=== PATIENT | female | born 1945 | race Caucasian/White ===

== ENCOUNTER → 2019-03-31 | Outpatient (CLI) | payer MEDICARE ==
[~2019-03-31] MED LIST: ALBU90OI INH; Atarax10 MG PO; CALC.25 PO; CLOBETTC TOP; Citalopram HBr40 MG PO; LEVSOD50 PO; Macrobid 100 M100 MG PO; Norco 5-325 Ta1 EACH PO; ONDA4ODT MM; ZYRTEC10 M2 PO
[2019-03-31 12:25] LABS: BASOPHILS ABSOLUTE AUTO 0.05 K/mm3 (0.00-0.23); BASOPHILS PERCENT AUTO 1 % (0-2); EOSINOPHILS ABSOLUTE AUTO 0.16 K/mm3 (0.00-0.68); EOSINOPHILS PERCENT AUTO 2 % (0-6); Hematocrit 33.6 % (33.0-51.0); IMMATURE GRAN ABSOLUTE AUTO 0.02 K/mm3 (0.00-0.10); IMMATURE GRAN PERCENT AUTO 0 % (0-1); LYMPHOCYTES ABSOLUTE AUTO 1.81 K/mm3 (0.84-5.20); LYMPHOCYTES PERCENT AUTO 26 % (21-46); MONOCYTES ABSOLUTE AUTO 0.61 K/mm3 (0.16-1.47); MONOCYTES PERCENT AUTO 9 % (4-13); Mean Corpuscular HGB 30.6 pg (26.0-34.0); Mean Corpuscular HGB Conc 32.7 g/dL (31.5-36.5); Mean Corpuscular Volume 93 fL (80-100); Mean Platelet Volume 10.4 fL (9.1-12.4); NEUTROPHILS ABSOLUTE AUTO 4.27 K/mm3 (1.96-9.15); NEUTROPHILS PERCENT AUTO 62 % (41-73); Platelet Count 221 K/mm3 (150-400); RDW Coefficient Variation 13.7 % (11.7-14.2); RDW Standard Deviation 46.4 fL (35.1-46.3); White Blood Cell Count 6.92 K/mm3 (4.00-11.30)
[2019-03-31 12:35] LABS: Albumin, Blood 3.6 g/dL (3.4-5.0); Albumin/Globulin Ratio 1.2 (0.8-1.8); Bilirubin, Total 0.2 mg/dL (0.1-1.0); Bun/Creatinine Ratio 15.9 (12.0-20.0); Calcium, Blood 8.3 mg/dL (8.5-10.1); Creatinine, Blood 2.71 mg/dL (0.40-1.00); Potassium, Blood 3.8 mmol/L (3.5-5.5); Total Protein, Blood 6.6 g/dL (6.4-8.2)
== END ==
LOC: LAB SHORT 12:22 → LAB EV 12:22
PROVIDERS: Emergency Medicine
DX: N18.9 Chronic kidney disease, unspecified (principal)
CPT/HCPCS: 80053; 85025

== ENCOUNTER 2019-04-23 07:13 | Emergency (ER) | payer MEDICARE ==
[~2019-04-23] VITALS: Ht 152.4 cm; Wt 72.6 kg
[2019-04-23] MEDS ORDERED: LEVSOD50 PO (07:57)
[2019-04-23] MEDS ORDERED: Atarax10 MG PO (07:57)
[2019-04-23] MEDS ORDERED: ZYRTEC10 M2 PO (07:57)
[2019-04-23] MEDS ORDERED: CALC.25 PO (07:57)
[2019-04-23] MEDS ORDERED: Citalopram HBr40 MG PO (07:57)
[2019-04-23] MEDS ORDERED: CLOBETTC TOP (07:57)
[2019-04-23 08:24] LABS: BASOPHILS ABSOLUTE AUTO 0.05 K/mm3 (0.00-0.23); BASOPHILS PERCENT AUTO 1 % (0-2); EOSINOPHILS ABSOLUTE AUTO 0.17 K/mm3 (0.00-0.68); EOSINOPHILS PERCENT AUTO 2 % (0-6); Hematocrit 34.6 % (33.0-51.0); Hemoglobin 10.9 g/dL (11.5-16.0); IMMATURE GRAN ABSOLUTE AUTO 0.03 K/mm3 (0.00-0.10); IMMATURE GRAN PERCENT AUTO 0 % (0-1); LYMPHOCYTES ABSOLUTE AUTO 1.89 K/mm3 (0.84-5.20); LYMPHOCYTES PERCENT AUTO 22 % (21-46); MONOCYTES ABSOLUTE AUTO 0.67 K/mm3 (0.16-1.47); MONOCYTES PERCENT AUTO 8 % (4-13); Mean Corpuscular HGB 29.6 pg (26.0-34.0); Mean Corpuscular HGB Conc 31.5 g/dL (31.5-36.5); Mean Corpuscular Volume 94 fL (80-100); Mean Platelet Volume 10.4 fL (9.1-12.4); NEUTROPHILS ABSOLUTE AUTO 5.62 K/mm3 (1.96-9.15); NEUTROPHILS PERCENT AUTO 67 % (41-73); Platelet Count 203 K/mm3 (150-400); RDW Standard Deviation 48.1 fL (35.1-46.3); Red Blood Cell Count 3.68 M/mm3 (3.80-5.20); White Blood Cell Count 8.43 K/mm3 (4.00-11.30)
[2019-04-23 08:30] LABS: Source, Urine Clean Catch
[2019-04-23 08:32] LABS: Bilirubin, Urine Neg (Neg); Blood, Urine 3+ (Neg); Glucose Qualitative, Urine Neg (Neg); Ketones, Urine Neg (Neg); Leukocyte Esterase, Urine 1+ (Neg); Nitrite, Urine Neg (Neg); Protein, Urine 2+ (Neg); Urobilinogen, Urine NORM (Normal); pH, Urine 6.5 (5.0-8.0)
[2019-04-23 08:34] LABS: Albumin, Blood 3.4 g/dL (3.4-5.0); Albumin/Globulin Ratio 1.1 (0.8-1.8); Bilirubin, Total 0.4 mg/dL (0.1-1.0); Bun/Creatinine Ratio 10.9 (12.0-20.0); Calcium, Blood 8.7 mg/dL (8.5-10.1); Creatinine, Blood 2.57 mg/dL (0.40-1.00); Globulin, Blood 3.2 g/dL (2.2-4.0); Potassium, Blood 3.9 mmol/L (3.5-5.5); Total Protein, Blood 6.6 g/dL (6.4-8.2)
[2019-04-23 08:45] LABS: Appearance, Urine Clear (Clear); Bacteria Rare /hpf; Color, Urine Pale Yellow (P-Yellow); Red Blood Cells, Urine 0-2 /hpf (0-2); Squamous Epithelial Cells Rare /hpf (Few); White Blood Cells, Urine 0-2 /hpf (0-5)
[2019-04-23] MEDS ORDERED: ONDA4ODT MM (10:54)
[2019-04-23] MEDS ORDERED: Norco 5-325 Ta1 EACH PO (10:54)
== END 2019-04-23 11:08 | disposition home or self-care (01) ==
LOC: ER 07:13
PROVIDERS: Emergency Medicine
DX: N13.2 Hydronephrosis with renal and ureteral calculous obstruction (principal); N18.4 Chronic kidney disease, stage 4 (severe); D63.1 Anemia in chronic kidney disease; E03.9 Hypothyroidism, unspecified; F17.210 Nicotine dependence, cigarettes, uncomplicated; Z79.899 Other long term (current) drug therapy
CPT/HCPCS: 36415; 74176; 80053; 81001; 85025; 87077; 87086; 87186; 96360; 99284-25; J7030

== ENCOUNTER 2019-04-26 19:42 | Emergency (ER) | payer MEDICARE ==
[~2019-04-26] VITALS: Ht 152.4 cm; Wt 72.6 kg
[~2019-04-26 19:42] MED LIST changes: -ALBU90OI INH; -Macrobid 100 M100 MG PO
[2019-04-26] MEDS ORDERED: Macrobid 100 M100 MG PO (22:28)
[2019-04-26] MEDS ORDERED: ALBU90OI INH (22:28)
== END 2019-04-26 22:54 | disposition home or self-care (01) ==
LOC: ER 19:42
DX: R06.2 Wheezing (principal); R82.81 Pyuria; B96.1 Klebsiella pneumoniae [K. pneumoniae] as the cause of diseases classified elsewhere; N18.9 Chronic kidney disease, unspecified; F17.200 Nicotine dependence, unspecified, uncomplicated; Z88.0 Allergy status to penicillin; Z79.899 Other long term (current) drug therapy
CPT/HCPCS: 36415; 94644; 94664; 96374; 96375; 99283-25; J1200; J2930

== ENCOUNTER 2020-05-21 09:06 | Day surgery (SDC) | payer MEDICARE ==
[~2020-05-21] VITALS: Ht 157.5 cm; Wt 66.7 kg
[~2020-05-21 09:06] MED LIST changes: +ALBU90OI INH; +EUTHYROX50 MCG PO; -LEVSOD50 PO; +Macrobid 100 M100 MG PO
[2020-05-21 11:33] LABS: BASOPHILS ABSOLUTE AUTO 0.05 K/mm3 (0.00-0.23); BASOPHILS PERCENT AUTO 1 % (0-2); EOSINOPHILS PERCENT AUTO 1 % (0-6); Hematocrit 35.2 % (33.0-51.0); IMMATURE GRAN ABSOLUTE AUTO 0.03 K/mm3 (0.00-0.10); IMMATURE GRAN PERCENT AUTO 0 % (0-1); LYMPHOCYTES ABSOLUTE AUTO 1.98 K/mm3 (0.84-5.20); LYMPHOCYTES PERCENT AUTO 23 % (21-46); MONOCYTES ABSOLUTE AUTO 0.79 K/mm3 (0.16-1.47); MONOCYTES PERCENT AUTO 9 % (4-13); Mean Corpuscular HGB 28.6 pg (26.0-34.0); Mean Corpuscular HGB Conc 31.3 g/dL (31.5-36.5); Mean Corpuscular Volume 92 fL (80-100); Mean Platelet Volume 10.9 fL (9.1-12.4); NEUTROPHILS ABSOLUTE AUTO 5.71 K/mm3 (1.96-9.15); NEUTROPHILS PERCENT AUTO 66 % (41-73); Platelet Count 203 K/mm3 (150-400); RDW Coefficient Variation 13.5 % (11.7-14.2); RDW Standard Deviation 45.6 fL (35.1-46.3); Red Blood Cell Count 3.84 M/mm3 (3.80-5.20); White Blood Cell Count 8.66 K/mm3 (4.00-11.30)
[2020-05-21 11:56] LABS: Albumin, Blood 3.4 g/dL (3.4-5.0); Bilirubin, Total 0.3 mg/dL (0.1-1.0); Bun/Creatinine Ratio 13.3 (12.0-20.0); Calcium, Blood 8.9 mg/dL (8.5-10.1); Creatinine, Blood 2.48 mg/dL (0.40-1.00); Globulin, Blood 3.5 g/dL (2.2-4.0); Potassium, Blood 4.8 mmol/L (3.5-5.5); Total Protein, Blood 6.9 g/dL (6.4-8.2)
[2020-05-21] MEDS ORDERED: TAMSULOSIN HCL0.4 M1 PO (11:56)
[2020-05-21 12:14] LABS: Influenza A, PCR Negative (NEGATIVE); Influenza B, PCR Negative (NEGATIVE); Resp Syncytial Virus, PCR Negative (NEGATIVE); SARS-Cov-2 (COVID-19) PCR, MMC Negative (NEGATIVE)
--- NOTE | 2020-05-21 15:00 | NUR ---
INTO [facility]IA [facility] FROM ER. History, Chart, Medications and Allergies reviewed before start of procedure.PT HAD ABOUT HALF A WATER BOTTLE WHILE IN ER. NOTIFIED ANESTHESIA AND DR. GUERRERO. BESIDES THAT, PT REPORTS NPO SINCE YESTERDAY. Lungs clear T/O to Auscultation. Patient States Post-Procedure ride home has been arranged .
--- NOTE | 2020-05-21 17:27 | NUR ---
PTS DRESSING c MINIMAL BLOODY DRAINAGE ON GAUZE. IV DC'D, CATH INTACT AND PRESSURE DRESSING APPLIED. Discharge instructions reviewed with patient. Patient verbalizes understanding. Copy given to patient to take home. Patient States Post-Procedure ride home has been arranged. DRESSED s ASSISTANCE. DENIES PAIN p MOVEMENT. PT DECLINES WC, REQUESTING TO AMBULATE D/T PAIN AT INCISIONAL SITE. PT ESCORTED TO RIDE AND TO CAR, NO DIFFICULTY NOTED c AMBULATION. INSTRUCTIONS TO S/O. NO QUESTIONS.
--- NOTE | 2020-05-24 09:18 | NUR ---
DR. GUERRERO'S OFFICE IS CALLING PATIENT TO SET UP F/U APPOINTMENT
== END 2020-05-21 18:00 | disposition home or self-care (01) ==
LOC: ER 09:06 → SURS 09:07 → ORSCMMR 15:00 → SURS 18:00
PROVIDERS: Emergency Medicine; Surgery
PROC: 0D9P3ZZ Drainage of Rectum, Percutaneous Approach (ICD-10-PCS; principal; 2020-05-21 14:30)
DX: K61.1 Rectal abscess (principal); N18.9 Chronic kidney disease, unspecified; F17.200 Nicotine dependence, unspecified, uncomplicated; Z88.1 Allergy status to other antibiotic agents; Z88.0 Allergy status to penicillin; Z98.84 Bariatric surgery status; Z20.822 Contact with and (suspected) exposure to COVID-19
CPT/HCPCS: 0241U; 74176; 80053; 85025; 99284-25; J1100; J2405; J2704; J3010; J7030

== ENCOUNTER 2023-05-17 08:42 | Day surgery (SDC) | payer MEDICARE ==
[~2023-05-17] VITALS: Ht 165.1 cm; Wt 55.4 kg
[~2023-05-17 08:42] MED LIST changes: +TAMSULOSIN HCL0.4 M1 PO
[2023-05-17] MEDS ORDERED: ALBU90OI (08:57)
[2023-05-17] MEDS ORDERED: VITAMIN D5000 UNIT (08:57)
[2023-05-17] MEDS ORDERED: B-12 COMPL1000 MCG/2 (08:58)
[2023-05-17] MEDS ORDERED: GERITOL COMPLETE (08:58)
[2023-05-17] MEDS ORDERED: MAGNESIUM OXID500 MG (08:58)
[2023-05-17] MEDS ORDERED: ONDA4ODT (08:59)
[2023-05-17] MEDS ORDERED: SODBIC650 (08:59)
[2023-05-17 09:49] VITALS: BP 133/62
== END 2023-05-17 09:55 | disposition home or self-care (01) ==
LOC: ORSCSDS 08:42
PROVIDERS: Surgery
PROC: 0DB68ZX Excision of Stomach, Via Natural or Artificial Opening Endoscopic, Diagnostic (ICD-10-PCS; principal; 2023-05-17 09:15)
PROC: 0DB48ZX Excision of Esophagogastric Junction, Via Natural or Artificial Opening Endoscopic, Diagnostic (ICD-10-PCS; principal; 2023-05-17 09:15)
DX: K22.70 Barrett's esophagus without dysplasia (principal); K21.00 Gastro-esophageal reflux disease with esophagitis, without bleeding; K29.70 Gastritis, unspecified, without bleeding; K31.7 Polyp of stomach and duodenum; N18.9 Chronic kidney disease, unspecified; E03.9 Hypothyroidism, unspecified; F32.A Depression, unspecified; J43.9 Emphysema, unspecified; F17.210 Nicotine dependence, cigarettes, uncomplicated; Z79.899 Other long term (current) drug therapy
CPT/HCPCS: 88305; 88342; J2704; J7120

== ENCOUNTER 2024-05-15 12:27 | Emergency (ER) | payer MEDICARE ==
[~2024-05-15] VITALS: Ht 154.9 cm; Wt 49.9 kg
[~2024-05-15 12:27] MED LIST changes: +ALBU90OI; +B-12 COMPL1000 MCG/2; +GERITOL COMPLETE; +MAGNESIUM OXID500 MG; +ONDA4ODT; +SODBIC650; +VITAMIN D5000 UNIT
[2024-05-15 12:52] VITALS: BP 143/53
== END 2024-05-15 14:01 | disposition home or self-care (01) ==
LOC: ER 12:27
DX: T82.898A Other specified complication of vascular prosthetic devices, implants and grafts, initial encounter (principal); Z88.0 Allergy status to penicillin; Z88.1 Allergy status to other antibiotic agents; Z88.5 Allergy status to narcotic agent; Z88.6 Allergy status to analgesic agent; Z79.899 Other long term (current) drug therapy; N18.9 Chronic kidney disease, unspecified; F17.200 Nicotine dependence, unspecified, uncomplicated
CPT/HCPCS: 99282

== ENCOUNTER 2024-11-11 09:04 | Day surgery (SDC) | payer MEDICARE ==
[~2024-11-11] VITALS: Ht 154.9 cm; Wt 50.5 kg
[~2024-11-11 09:04] MED LIST changes: -ALBU90OI; +ARANESP INJ; -B-12 COMPL1000 MCG/2; +B-12 COMPL1000 MCG/2 INJ; +CALCITRIOL0.5 MC1 PO; +FURO40 PO; -GERITOL COMPLETE; +GERITOL TONIC PO; -MAGNESIUM OXID500 MG; +MAGNESIUM OXID500 MG PO; -ONDA4ODT; +ONDA4ODT PO; +POTA10T PO; -SODBIC650; +SODBIC650 PO; +SODIUM FLUORID100 ML PO; -VITAMIN D5000 UNIT; +VITAMIN D5000 UNIT PO
[2024-11-11] MEDS ORDERED: NS 500 ML IV ONE (09:31)
[2024-11-11] MEDS ORDERED: FentaNYL Citrate 50 MCG/ML 2 ML Injection ONE (09:31)
[2024-11-11] MEDS ORDERED: NS 250 ML IV ONE (09:31)
[2024-11-11] MEDS ORDERED: Heparin Sodium 1000 Units/ML 10ML MDV ONE (09:31)
[2024-11-11 09:38] VITALS: BP 142/68
[2024-11-11] MEDS ORDERED: Midazolam HCl 1MG / ML 2ML Vial ONE (09:46)
[2024-11-11] MEDS ORDERED: Ondansetron HCl 2 MG / ML 2ML Vial ONE (09:46)
[2024-11-11] MEDS ORDERED: Heparin Sodium 10,000 Units/ML 1ML MDV ONE (10:00)
[2024-11-11 10:49] VITALS: BP 137/65
[2024-11-11 11:00] VITALS: BP 145/61
[2024-11-11 11:15] VITALS: BP 147/60
--- NOTE | 2024-11-11 11:22 | NUR ---
DISCHARGE WENT OVER WITH PT AND , BOTH VERBALIZE UNDERSTANDING OF INSTRUCTIONS. SALINE LOCK REMOVED WITH CATHETER INTACT. PT DISCHARGED PER W/C WITH ONE STAFF PER W/C IN CARE OF .
== END 2024-11-11 11:26 | disposition home or self-care (01) ==
LOC: MHTC 09:04
DX: N18.6 End stage renal disease (principal); G25.0 Essential tremor; E03.9 Hypothyroidism, unspecified; M85.80 Other specified disorders of bone density and structure, unspecified site; J43.9 Emphysema, unspecified; I47.10 Supraventricular tachycardia, unspecified; F17.210 Nicotine dependence, cigarettes, uncomplicated; N28.1 Cyst of kidney, acquired; N20.0 Calculus of kidney; I44.7 Left bundle-branch block, unspecified; Z79.899 Other long term (current) drug therapy; Z88.0 Allergy status to penicillin; Z88.1 Allergy status to other antibiotic agents; Z88.5 Allergy status to narcotic agent; Z88.6 Allergy status to analgesic agent; Z98.84 Bariatric surgery status
CPT/HCPCS: 76937; 93005; 93010; C1750; C1769; C1894; J1644; J2250; J2405; J3010; J7040; J7050

== ENCOUNTER 2025-03-16 05:37 | Observation (INO) | payer MEDICARE ==
[~2025-03-16] VITALS: Ht 154.9 cm; Wt 54.4 kg
[2025-03-16 07:07] LABS: BASOPHILS ABSOLUTE AUTO 0.09 K/mm3 (0.00-0.23); BASOPHILS PERCENT AUTO 1 % (0-2); EOSINOPHILS ABSOLUTE AUTO 0.49 K/mm3 (0.00-0.68); EOSINOPHILS PERCENT AUTO 4 % (0-6); Hematocrit 35.2 % (33.0-51.0); Hemoglobin 11.4 g/dL (11.5-16.0); IMMATURE GRAN ABSOLUTE AUTO 0.03 K/mm3 (0.00-0.10); IMMATURE GRAN PERCENT AUTO 0 % (0-1); LYMPHOCYTES ABSOLUTE AUTO 1.96 K/mm3 (0.84-5.20); LYMPHOCYTES PERCENT AUTO 17 % (21-46); MONOCYTES ABSOLUTE AUTO 1.00 K/mm3 (0.16-1.47); MONOCYTES PERCENT AUTO 9 % (4-13); Mean Corpuscular HGB Conc 32.4 g/dL (31.5-36.5); Mean Corpuscular Volume 93 fL (80-100); NEUTROPHILS ABSOLUTE AUTO 8.26 K/mm3 (1.96-9.15); NEUTROPHILS PERCENT AUTO 70 % (41-73); NRBC ABSOLUTE 0.00 K/mm3 (0.00-0.02); NRBC Auto 0.0 /100 WBC (0.0-0.2); Platelet Count 215 K/mm3 (150-400); RDW Coefficient Variation 15.9 % (11.7-14.2); RDW Standard Deviation 54.6 fL (35.1-46.3)
[2025-03-16 07:24] LABS: Alanine Aminotransfer (ALT/SGP 22.0 U/L (12-78); Albumin, Blood 3.2 g/dL (3.4-5.0); Albumin/Globulin Ratio 1.0 (0.8-1.8); Anion Gap 12.0 mmol/L (3-11); Aspartate Aminotrans (AST/SGOT 14.0 U/L (12-37); Bilirubin, Total 0.3 mg/dL (0.1-1.0); Blood Urea Nitrogen 36.0 mg/dL (8-24); CO2, Blood 18.0 mmol/L (21-32); Calcium, Blood 8.3 mg/dL (8.5-10.1); Chloride, Blood 114.0 mmol/L (98-108); Creatinine, Blood 5.85 mg/dL (0.40-1.00); Globulin, Blood 3.2 g/dL (2.2-4.0); Glucose, Blood 83.0 mg/dL (70-99); Potassium, Blood 3.6 mmol/L (3.5-5.5); Sodium, Blood 140.0 mmol/L (136-145); Total Protein, Blood 6.4 g/dL (6.4-8.2)
[2025-03-16 07:27] LABS: Prothrombin Time Results 11.1 Sec (9.7-11.5)
[2025-03-16] MEDS ORDERED: FLU VACC TS2025(65UP)/MF59C/PF 45 MCG/0.5 ML SYRINGE IM SCH (09:10)
[2025-03-16] MEDS ORDERED: Heparin Sodium 1000 Units/ML 10ML MDV ONE ×2 (09:13→09:19)
[2025-03-16] MEDS ORDERED: NS 2,000 ML IV ONE (09:13)
[2025-03-16] MEDS ORDERED: NS 500 ML IV ONE (09:19)
[2025-03-16] MEDS ORDERED: NS 1,000 ML IV ONE (09:24)
[2025-03-16] MEDS ORDERED: FentaNYL Citrate 50 MCG/ML 2 ML Injection ONE (09:28)
[2025-03-16] MEDS ORDERED: Midazolam HCl 1MG / ML 2ML Vial ONE (09:28)
[2025-03-16] MEDS ORDERED: Ondansetron HCl 2 MG / ML 2ML Vial ONE (09:40)
[2025-03-16 11:45] VITALS: BP 149/73
--- NOTE | 2025-03-16 11:52 | NUR ---
DR ESCALANTE AT BEDSIDE DISCUSSING PROCEDURAL FINDINGS AND FUTURE PLAN OF CARE.
[2025-03-16 12:00] VITALS: BP 150/68
[2025-03-16 12:15] VITALS: BP 153/70
--- NOTE | 2025-03-16 12:23 | NUR ---
GROIN SITE SOFT AND NON-TENDER PER PT. NO BLEEDING/HEMATOMA NOTED. THRILL HEARD VIA DOPPLER IN L UPPER ARM.
[2025-03-16 12:30] VITALS: BP 147/68
[2025-03-16 13:00] VITALS: BP 149/73
--- NOTE | 2025-03-16 13:49 | NUR ---
pt given dc instructions and verbalized understanding. iv out. sites both soft and non-tender per pt. no bleeding/hematoma noted. pt changed. pt taken to [facility] via wc.
[2025-03-16] MEDS ORDERED: Heparin Sodium,Porcine 5,000 UNIT/0.5 ML SDV SC SCH (21:00)
== END 2025-03-16 13:49 | disposition home or self-care (01) ==
LOC: ER 05:37 → MEDS 05:38
PROVIDERS: Emergency Medicine; ADMIT Family Medicine
DX: T82.868A Thrombosis due to vascular prosthetic devices, implants and grafts, initial encounter (principal); I82.612 Acute embolism and thrombosis of superficial veins of left upper extremity; N18.6 End stage renal disease; F17.210 Nicotine dependence, cigarettes, uncomplicated; I45.9 Conduction disorder, unspecified; Z99.2 Dependence on renal dialysis; Z88.8 Allergy status to other drugs, medicaments and biological substances; Z88.5 Allergy status to narcotic agent; Z88.0 Allergy status to penicillin; Z79.899 Other long term (current) drug therapy
CPT/HCPCS: 76937; 80053; 85025; 85610; 85730; 93246; 99152; 99153; 99284; C1725; C1769; C1887; C1894; J0461; J1644; J2250; J2405; J3010; J7030; J7040; Q9967

== ENCOUNTER 2025-03-27 05:53 | Observation (INO) | payer MEDICARE ==
[~2025-03-27] VITALS: Ht 162.6 cm; Wt 51.2 kg
[2025-03-27 08:09] LABS: BASOPHILS ABSOLUTE AUTO 0.10 K/mm3 (0.00-0.23); BASOPHILS PERCENT AUTO 1 % (0-2); EOSINOPHILS ABSOLUTE AUTO 0.33 K/mm3 (0.00-0.68); EOSINOPHILS PERCENT AUTO 3 % (0-6); Hematocrit 31.1 % (33.0-51.0); Hemoglobin 10.0 g/dL (11.5-16.0); IMMATURE GRAN ABSOLUTE AUTO 0.03 K/mm3 (0.00-0.10); IMMATURE GRAN PERCENT AUTO 0 % (0-1); LYMPHOCYTES ABSOLUTE AUTO 1.86 K/mm3 (0.84-5.20); LYMPHOCYTES PERCENT AUTO 19 % (21-46); MONOCYTES ABSOLUTE AUTO 0.75 K/mm3 (0.16-1.47); MONOCYTES PERCENT AUTO 8 % (4-13); Mean Corpuscular HGB Conc 32.2 g/dL (31.5-36.5); Mean Corpuscular Volume 95 fL (80-100); NEUTROPHILS ABSOLUTE AUTO 6.76 K/mm3 (1.96-9.15); NEUTROPHILS PERCENT AUTO 69 % (41-73); NRBC ABSOLUTE 0.00 K/mm3 (0.00-0.02); NRBC Auto 0.0 /100 WBC (0.0-0.2); Platelet Count 206 K/mm3 (150-400); RDW Coefficient Variation 16.7 % (11.7-14.2); RDW Standard Deviation 58.1 fL (35.1-46.3)
[2025-03-27 08:27] LABS: Anion Gap 11.0 mmol/L (3-11); Blood Urea Nitrogen 29.0 mg/dL (8-24); CO2, Blood 20.0 mmol/L (21-32); Calcium, Blood 8.0 mg/dL (8.5-10.1); Chloride, Blood 113.0 mmol/L (98-108); Creatinine, Blood 5.22 mg/dL (0.40-1.00); Glucose, Blood 82.0 mg/dL (70-99); Potassium, Blood 3.8 mmol/L (3.5-5.5); Sodium, Blood 140.0 mmol/L (136-145)
[2025-03-27] MEDS ORDERED: CELEXA40 M9 PO (08:33)
[2025-03-27] MEDS ORDERED: FUROSEMIDE40 MG PO (08:33)
[2025-03-27] MEDS ORDERED: NS 200 ML IV SCH (09:30)
[2025-03-27] MEDS ORDERED: FLU VACC TS2025(65UP)/MF59C/PF 45 MCG/0.5 ML SYRINGE IM ONE (09:50)
[2025-03-27] MEDS ORDERED: FLU VACC TS2025(65UP)/MF59C/PF 45 MCG/0.5 ML SYRINGE IM SCH (10:00)
[2025-03-27 10:13] VITALS: BP 141/72
[2025-03-27] MEDS ORDERED: NS 250 ML IV ONE (12:45)
[2025-03-27] MEDS ORDERED: Heparin Sodium 1000 Units/ML 10ML MDV ONE ×2 (12:45→12:56)
[2025-03-27] MEDS ORDERED: NS 1,000 ML IV ONE ×2 (12:45→12:56)
[2025-03-27] MEDS ORDERED: Midazolam HCl 1MG / ML 2ML Vial ONE ×2 (12:55→13:12)
[2025-03-27] MEDS ORDERED: FentaNYL Citrate 50 MCG/ML 2 ML Injection ONE ×2 (12:56→13:13)
--- NOTE | 2025-03-27 13:10 | NUR ---
PT TAKEN FOR IR PROCEDURE.
[2025-03-27] MEDS ORDERED: NS 0 ML IV ONE (13:13)
[2025-03-27] MEDS ORDERED: Alteplase Recombinant 2 MG / Vial ONE (13:42)
[2025-03-27] MEDS ORDERED: Heparin Sodium,Porcine 5,000 UNIT/0.5 ML SDV SC SCH (14:00)
[2025-03-27] MEDS ORDERED: Heparin Sodium 10,000 Units/ML 1ML MDV ONE (14:21)
[2025-03-27 14:49] VITALS: BP 149/71
[2025-03-27] MEDS ORDERED: Morphine Sulfate 4 MG/1 ML Injection IV PRN (17:30)
--- NOTE | 2025-03-27 17:30 | NUR ---
PATIENT SURGICAL SITE c CONSTANT TRICKLE OF BLOOD FILLING DRESSING AND SPILLING OUTSIDE OF TEGADERM. BETTYE DRESSING PLACED. PT c C/O PAIN FROM INCREAESED PRESSRE FROM 2LB BAG. T.O. FOR IV MORPHINE 2MG Q4H PRN. PT ALLERGIC TO MORPHINE AND MUST HAVE c PRN ZOFRAN. BOTH TO BE GIVEN AT SAME TIME TO MITIGATE NAUSEA/VOMITING.
[2025-03-27] MEDS ORDERED: FentaNYL Citrate 50 MCG/ML 2 ML Injection IV PRN (17:55)
--- NOTE | 2025-03-27 19:18 | NUR ---
SHIFT SUMMARY PT IS A/OX4. INDEPENDENT AT BASELINE. PERMCATH PLACED THIS AFTERNOON. LATER THIS EVENING PERMCATH SITE INCREASED IN BLEEDING, SANDBAG/WEIGHT APPLIED. SITE RE-ASSESSED, CONTINUING TO BLEED WITHOUT IMPROVEMENT. DRESSING REINFORCED AND PRESSURE REAPPLIED. GRAFT SITE ALSO INCREASED IN BLEEDING, PRESSURE REINFORCED. BLEEDING HAS SUBSIDED AT THIS TIME.
--- NOTE | 2025-03-27 21:00 | NUR ---
CALLED HOSPITALIST TO ASK ABOUT THE HEPARIN ORDERED TONIGHT SINCE PT HAS BEEN BLEEDING FROM PERMACATH AND HD SITE. HOSPITALIST GAVE THE INSTRUCTION TO STILL PROVIDE THE PT WITH THE DOSE OF HEPARIN.
[2025-03-27 21:05] VITALS: BP 133/65
[2025-03-27] MEDS ORDERED: Albuterol HFA200 ACT/6.7 GM INH INH PRN (21:35)
[2025-03-28] VITALS (16 sets, daily range): BP systolic 129–157; BP diastolic 60–76
[2025-03-28 04:59] LABS: BASOPHILS ABSOLUTE AUTO 0.08 K/mm3 (0.00-0.23); BASOPHILS PERCENT AUTO 1 % (0-2); EOSINOPHILS ABSOLUTE AUTO 0.41 K/mm3 (0.00-0.68); EOSINOPHILS PERCENT AUTO 4 % (0-6); Hematocrit 29.5 % (33.0-51.0); Hemoglobin 9.3 g/dL (11.5-16.0); IMMATURE GRAN ABSOLUTE AUTO 0.03 K/mm3 (0.00-0.10); IMMATURE GRAN PERCENT AUTO 0 % (0-1); LYMPHOCYTES ABSOLUTE AUTO 1.89 K/mm3 (0.84-5.20); LYMPHOCYTES PERCENT AUTO 16 % (21-46); MONOCYTES ABSOLUTE AUTO 0.86 K/mm3 (0.16-1.47); MONOCYTES PERCENT AUTO 7 % (4-13); Mean Corpuscular HGB Conc 31.5 g/dL (31.5-36.5); Mean Corpuscular Volume 96 fL (80-100); NEUTROPHILS ABSOLUTE AUTO 8.33 K/mm3 (1.96-9.15); NEUTROPHILS PERCENT AUTO 72 % (41-73); NRBC ABSOLUTE 0.00 K/mm3 (0.00-0.02); NRBC Auto 0.0 /100 WBC (0.0-0.2); Platelet Count 181 K/mm3 (150-400); RDW Coefficient Variation 16.8 % (11.7-14.2); RDW Standard Deviation 58.4 fL (35.1-46.3)
[2025-03-28 05:50] LABS: Alanine Aminotransfer (ALT/SGP 17.0 U/L (12-78); Albumin, Blood 2.7 g/dL (3.4-5.0); Albumin/Globulin Ratio 0.9 (0.8-1.8); Anion Gap 13.0 mmol/L (3-11); Aspartate Aminotrans (AST/SGOT 13.0 U/L (12-37); Bilirubin, Total 0.3 mg/dL (0.1-1.0); Blood Urea Nitrogen 39.0 mg/dL (8-24); CO2, Blood 18.0 mmol/L (21-32); Calcium, Blood 7.9 mg/dL (8.5-10.1); Chloride, Blood 110.0 mmol/L (98-108); Creatinine, Blood 5.72 mg/dL (0.40-1.00); Globulin, Blood 2.9 g/dL (2.2-4.0); Glucose, Blood 87.0 mg/dL (70-99); Magnesium, Blood 1.9 mg/dL (1.6-2.4); Potassium, Blood 4.1 mmol/L (3.5-5.5); Sodium, Blood 137.0 mmol/L (136-145); Total Protein, Blood 5.6 g/dL (6.4-8.2)
--- NOTE | 2025-03-28 05:57 | NUR ---
SHIFT SUMMARY PT IS A&OX4, PLEASANT AND COOPERATIVE WITH CARE. PT HAD A PERMACATH PLACE 03/27/25, DUE TO HD GRAFT BEING OCCLUDED. PTs SITES HAVE BEEN BLEEDING T/O SHIFT, BETTYE DRESSING AND TEGADERM IN PLACE. PT HAS GOTTEN UP AND WALKED IN THE HALLS TODAY, PT REPORTS FEELING BETTER WITH AMBULATION. PT REPORTS PAIN AT PERMACATH SITE, MEDICATED PER EMAR WITH GOOD EFFECT. NO OTHER ACUTE CHANGES THIS SHIFT. PT RESTED T/O SHIFT WITH EVEN AND UNLABORED RESPIRATIONS, BED IN THE LOWEST POSITION, AND CALL LIGHT WITHIN REACH
--- NOTE | 2025-03-28 08:30 | NUR ---
pt spouce at bedside, pt is a/ox4, pleasant and cooperative with care, follows commands well, reports a bit of pain to perma cath site, tylenol requested, lungs are clear in upper oh, fine crackles noted to r base, dim in l base, on r/a, reports an occ productive cough of clear sputum, hrr, tele in place running sr with bbb in the 70's, trace edema noted to b/l le, ppp+2, cap refill<3 sec, vs stable, afebrile, piv to rfa, site is clear and patent, btx4, abd flat soft nontender, voids without diff, skin c/w/d,, permacath site to lcw, has some blood around dressing, not oozing outside of the dressing, supa foley, call light in reach.
--- NOTE | 2025-03-28 08:31 | NUR ---
pt left via bed for dialysis. spouce in attendence.
[2025-03-28] MEDS ORDERED: Cyanocobalamin 1000 MCG/ML 1ML Vial IM SCH (09:00)
[2025-03-28] MEDS ORDERED: Potassium Chloride 10 Meq Tablet SA PO SCH (09:00)
[2025-03-28] MEDS ORDERED: Cholecalciferol 1000 Unit Tablet (=25MCG) PO SCH (09:00)
--- NOTE | 2025-03-28 16:30 | NUR ---
Pt had 1.5 liters off from dialysis, tolerated well, dressing was changed on permacath, pt is discharged to home, went over discharge instructions with her, she verbalized understanding, piv removed intact, pt left with all her belongings via wheelchair with field crew chief in attendence.
== END 2025-03-28 16:45 | disposition home or self-care (01) ==
LOC: ER 05:53 → MEDS 05:54
PROVIDERS: Hospitalist; Student in an Organized Health Care Education/Training Program; ADMIT Internal Medicine
DX: T82.868A Thrombosis due to vascular prosthetic devices, implants and grafts, initial encounter (principal); I13.2 Hypertensive heart and chronic kidney disease with heart failure and with stage 5 chronic kidney disease, or end stage renal disease; N18.6 End stage renal disease; I50.22 Chronic systolic (congestive) heart failure; F32.A Depression, unspecified; G25.0 Essential tremor; J43.9 Emphysema, unspecified; K21.9 Gastro-esophageal reflux disease without esophagitis; D64.9 Anemia, unspecified; F17.210 Nicotine dependence, cigarettes, uncomplicated; Z99.2 Dependence on renal dialysis; Z88.6 Allergy status to analgesic agent; Z88.0 Allergy status to penicillin; Z88.5 Allergy status to narcotic agent; Z88.1 Allergy status to other antibiotic agents; Z88.8 Allergy status to other drugs, medicaments and biological substances; Z79.899 Other long term (current) drug therapy; Z90.49 Acquired absence of other specified parts of digestive tract
CPT/HCPCS: 36415; 76937; 80048; 80053; 83735; 85025; 87340; 94760; 96372; 99152; 99153; 99284; A9270; C1725; C1750; C1769; C1887; C1894; G0378; J1644; J2250; J2997; J3010; J3420; J7030; J7040; J7050; Q9967

== ENCOUNTER 2025-04-20 09:59 | Emergency (ER) | payer MEDICARE ==
[~2025-04-20] VITALS: Ht 154.9 cm; Wt 49.9 kg
[~2025-04-20 09:59] MED LIST changes: +CELEXA40 M9 PO; +FUROSEMIDE40 MG PO
[2025-04-20 10:43] LABS: BASOPHILS ABSOLUTE AUTO 0.06 K/mm3 (0.00-0.23); BASOPHILS PERCENT AUTO 0 % (0-2); EOSINOPHILS ABSOLUTE AUTO 0.22 K/mm3 (0.00-0.68); EOSINOPHILS PERCENT AUTO 2 % (0-6); Hematocrit 32.2 % (33.0-51.0); Hemoglobin 10.5 g/dL (11.5-16.0); IMMATURE GRAN ABSOLUTE AUTO 0.06 K/mm3 (0.00-0.10); IMMATURE GRAN PERCENT AUTO 0 % (0-1); LYMPHOCYTES ABSOLUTE AUTO 1.54 K/mm3 (0.84-5.20); LYMPHOCYTES PERCENT AUTO 11 % (21-46); MONOCYTES ABSOLUTE AUTO 1.10 K/mm3 (0.16-1.47); MONOCYTES PERCENT AUTO 8 % (4-13); Mean Corpuscular HGB Conc 32.6 g/dL (31.5-36.5); Mean Corpuscular Volume 95 fL (80-100); NEUTROPHILS ABSOLUTE AUTO 11.26 K/mm3 (1.96-9.15); NEUTROPHILS PERCENT AUTO 79 % (41-73); NRBC ABSOLUTE 0.00 K/mm3 (0.00-0.02); NRBC Auto 0.0 /100 WBC (0.0-0.2); Platelet Count 175 K/mm3 (150-400); RDW Coefficient Variation 16.2 % (11.7-14.2); RDW Standard Deviation 56.0 fL (35.1-46.3)
[2025-04-20 10:50] LABS: Alanine Aminotransfer (ALT/SGP 18.0 U/L (12-78); Albumin, Blood 2.9 g/dL (3.4-5.0); Albumin/Globulin Ratio 0.8 (0.8-1.8); Anion Gap 9.0 mmol/L (3-11); Aspartate Aminotrans (AST/SGOT 20.0 U/L (12-37); Bilirubin, Total 0.4 mg/dL (0.1-1.0); Blood Urea Nitrogen 15.0 mg/dL (8-24); CO2, Blood 26.0 mmol/L (21-32); Calcium, Blood 8.3 mg/dL (8.5-10.1); Chloride, Blood 102.0 mmol/L (98-108); Creatinine, Blood 3.07 mg/dL (0.40-1.00); Globulin, Blood 3.5 g/dL (2.2-4.0); Glucose, Blood 100.0 mg/dL (70-99); Potassium, Blood 2.8 mmol/L (3.5-5.5); Sodium, Blood 134.0 mmol/L (136-145); Total Protein, Blood 6.4 g/dL (6.4-8.2)
[2025-04-20 11:27] LABS: CORONAVIRUS COVID-19 AG Negative (NEGATIVE)
[2025-04-20 12:20] LABS: Source, Urine Voided
[2025-04-20 12:31] LABS: Bilirubin, Urine Neg (Neg); Color, Urine Yellow (P-Yellow); Glucose Qualitative, Urine Neg (Neg); Ketones, Urine Neg (Neg); Leukocyte Esterase, Urine 3+ (Neg); Protein, Urine 4+ (Neg); Specific Gravity, Urine 1.010 (1.003-1.022); Urobilinogen, Urine NORM (Normal)
[2025-04-20 12:42] LABS: White Blood Cells, Urine TNTC /hpf (0-5)
[2025-04-20] MEDS ORDERED: Nitrofurantoin/Nitrofuran Mac 100 MG Cap PO ONE (13:05)
[2025-04-20] MEDS ORDERED: Macrobid 100 M100 MG PO (13:07)
[2025-04-20 13:15] VITALS: BP 126/51
== END 2025-04-20 13:27 | disposition home or self-care (01) ==
LOC: ER 09:59
PROVIDERS: Emergency Medicine
DX: N39.0 Urinary tract infection, site not specified (principal); N18.4 Chronic kidney disease, stage 4 (severe); F17.210 Nicotine dependence, cigarettes, uncomplicated; Z88.6 Allergy status to analgesic agent; Z88.0 Allergy status to penicillin; Z88.1 Allergy status to other antibiotic agents; Z88.5 Allergy status to narcotic agent; Z88.8 Allergy status to other drugs, medicaments and biological substances; Z79.899 Other long term (current) drug therapy
CPT/HCPCS: 80053; 81001; 84484; 85025; 87077; 87086; 87186; 87428-QW; 93005; 93010; 99284-25; A9270